=== PATIENT | male | born 1965 | race Caucasian/White ===

== ENCOUNTER 2019-07-08 16:12 | Emergency (ER) | payer OTHER ==
--- NOTE | 2019-07-08 16:27 | PDOC ---
Rapid Medical Evaluation Chief Complaint: Nausea/Vomiting Time Seen by Provider: 07/08/19 16:16 Medical Evaluation: Allergies Allergy/AdvReac Type Severity Reaction Status Date / Time No Known Allergies Allergy Verified 07/12/12 15:40 07/08/19 16:17 I have performed a brief in-person evaluation of this patient. The patient presents with a chief complaint of: vomiting since last PM. No diarhea/ no fevers./ thinks related to Shrimp ate last PM , last emesis ~ 30mins ago. Pertinent physical exam findings: pale / abd soft , no guarding- I have ordered the following:Zofran 4mg ODT The patient will proceed to the ED for further evaluation. Discharge Disposition - Diagnosis Vomiting - Discharge Dispostion Condition at time of disposition: Stable - Referrals - Patient Instructions - Post Discharge Activity
[2019-07-08 16:33] VITALS: TEMP 97.8; BMI 34.3
[2019-07-08] MEDS ORDERED: SODIUM CHLORIDE 1,000 ML IV STA (17:07)
[2019-07-08] MEDS ORDERED: ONDANSETRON 4 MG/2 ML VIAL IVPB ONE (17:07)
--- NOTE | 2019-07-08 17:35 | PDOC ---
History of Present Illness - General Chief Complaint: Nausea/Vomiting Stated Complaint: ALLERGIC REACTION Time Seen by Provider: 07/08/19 16:16 History Source: Patient Exam Limitations: No Limitations - History of Present Illness Travel History: No Initial Comments: 07/08/19 17:31 HISTORY OF PRESENT ILLNESS: 54-year-old male past medical history of hypertension who presents emergency department for evaluation of vomiting since eating shrimp for dinner last night. Patient reports his made him shrimp and he was the only one who had eaten it. He has been vomiting since that time is now reporting an empty stomach and continued retching and has been having some nausea as well. Denies any abdominal pain, constipation, diarrhea, hematuria, dysuria or rectal bleeding. He denies chest pain or shortness of breath. No recent travel or sick contacts. PAST MEDICAL HISTORY: See HPI SURGICAL HISTORY: Denies ALLERGIES: No known drug allergies REVIEW OF SYSTEMS General/Constitutional: Denies fever or chills. Denies weakness, weight change. HEENT: Denies change in vision. Denies ear pain or discharge. Denies sore throat. Cardiovascular: Denies chest pain or shortness of breath. Respiratory: Denies cough, wheezing, or hemoptysis. Gastrointestinal: See HPI Genitourinary: Denies dysuria, frequency, or change in urination. Musculoskeletal: Denies joint or muscle swelling or pain. Denies neck or back pain. Skin and breasts: Denies rash or easy bruising. Neurologic: Denies headache, vertigo, loss of consciousness, or loss of sensation. Psychiatric: Denies depression or anxiety. Endocrine: Denies increased thirst. Denies abnormal weight change. Hematologic/Lymphatic: Denies anemia, easy bleeding, or history of blood clots. Allergic/Immunologic: Denies hives or skin allergy. Denies latex allergy. PHYSICAL EXAM General Appearance: Well-appearing, appropriately dressed. No apparent distress , no intoxication. Respiratory/Chest: Lungs CTAB. No shortness of breath, chest tenderness, respiratory distress, accessory muscle use. No crackles, rales, rhonchi, stridor , wheezing, dullness Cardiovascular: RRR. S1, S2. No JVD, murmur, bradycardia, tachycardia. Gastrointestinal/Abdominal: Normal bowel sounds. Abdomen soft, non-distended. No tenderness or rebound tenderness. No organomegaly, pulsatile mass, guarding, hernia, hepatomegaly, splenomegaly. Past History - Past Medical History Allergies/Adverse Reactions: Allergies Allergy/AdvReac Type Severity Reaction Status Date / Time No Known Allergies Allergy Verified 07/12/12 15:40 Home Medications: Ambulatory Orders Ondansetron [Zofran -] 4 mg PO TID PRN #21 tablet 07/08/19 COPD: No HTN: Yes - Surgical History Gastric Stapling: No - Immunization History Immunization Up to Date: No - Psycho Social/Smoking Cessation Hx Smoking Status: No Smoking History: Never smoked Have you smoked in the past 12 months: No Number of Cigarettes Smoked Daily: 0 Information on smoking cessation initiated: No Hx Alcohol Use: No Drug/Substance Use Hx: No *Physical Exam - Vital Signs Last Vital Signs Temp Pulse Resp BP Pulse Ox 97.8 F 77 16 161/87 100 07/08/19 16:16 07/08/19 16:16 07/08/19 16:16 07/08/19 16:16 07/08/19 16:16 ED Treatment Course - LABORATORY CBC & Chemistry Diagram: 07/08/19 18:40 07/08/19 18:40 Medical Decision Making - Medical Decision Making 07/08/19 17:33 A/P: 54-year-old male with nausea and vomiting for 1 day Abdominal exam is benign Most likely viral gastroenteritis except patient is afebrile. Food poisoning, pancreatitis, cholecystitis, hepatitis, appendicitis are all on the differential but less likely as patient has a benign abdominal exam. Labs including lipase Normal saline 1 L IV bolus 8 mg Zofran IV push Reassess 07/08/19 19:54 Laboratory testing notable for mildly elevated alkaline phosphatase at 125. Patient currently feels better. Given absence of white count and normal laboratory testing will give patient a p.o. trial and reevaluate. 07/08/19 20:04 Patient is able to tolerate p.o.'s without difficulty. Results of been discussed with the patient was in agreement with plan to discharge home to follow-up with his primary doctor as needed. Discharge - Discharge Information Problems reviewed: Yes Clinical Impression/Diagnosis: Vomiting Qualifiers: Vomiting type: unspecified Vomiting Intractability: non-intractable Nausea presence: with nausea Qualified Code(s): R11.2 - Nausea with vomiting, unspecified Condition: Stable Disposition: HOME - Admission No - Additional Discharge Information Prescriptions: Ondansetron [Zofran -] 4 mg PO TID PRN #21 tablet PRN Reason: Nausea And/Or Vomiting - Follow up/Referral Referrals: Loraine Nelson MD [Primary Care Provider] - - Patient Discharge Instructions Additional Instructions: Rest, drink lots of fluids: Teas, water, soups Stefany edwar, carbonated beverages for the bubbles May try peppermint teas Avoid heavy , spicy or fatty foods until symptoms have resolved Avoid contact with others until fevers and symptoms resolved Lots of handwashing and good hygiene Continue [id number] medications for symptomatic relief Tylenol or Motrin for fever and pain May use Zofran-one tablet dissolved on tongue as needed for nausea. May repeat times one every 8 hours Followup with private physician in one to 2 days as needed Return to emergency department for worsened symptoms, fevers, dehydration - Post Discharge Activity
[2019-07-08] MEDS ORDERED: ONDANSETRON 4 MG/2 ML VIAL ONE ×2 (18:20→18:22)
[2019-07-08 19:36] LABS: BASO % 0.2 % (0-2.0); EOS % 0.1 % (0-4.5); HEMATOCRIT 46.4 % (35.4-49); HEMOGLOBIN 16.5 GM/dL (11.7-16.9); LYMPH % 20.3 % (8-40); MCH 29.1 pg (25.7-33.7); MCHC 35.5 g/dl (32.0-35.9); MEAN PLT VOLUME 9.1 fl (7.5-11.1); MONO % 4.6 % (3.8-10.2); NEUT % 74.8 % (42.8-82.8); PLATELET COUNT 207 K/MM3 (134-434); RBC 5.66 M/mm3 (4.00-5.60); RDW 13.6 % (11.9-15.9); WHITE BLOOD COUNT 6.1 K/mm3 (4.0-10.0)
[2019-07-08 19:49] LABS: ALBUMIN 4.3 g/dl (3.4-5.0); BILIRUBIN,TOTAL 0.8 mg/dL (0.2-1); BLOOD UREA NITROGEN 14.9 mg/dL (7-18); CALCIUM 9.7 mg/dL (8.5-10.1); CREATININE 0.8 mg/dL (0.55-1.3); POTASSIUM 4.2 mmol/L (3.5-5.1); TOT PROT 8.5 g/dl (6.4-8.2)
[2019-07-08 20:01] LABS: URINE APPEARANCE CLEAR; URINE BILIRUBIN NEGATIVE (NEGATIVE); URINE COLOR YELLOW; URINE GLUCOSE (UA) NEGATIVE (NEGATIVE); URINE KETONE NEGATIVE (NEGATIVE); URINE LEUK ESTERASE NEGATIVE (NEGATIVE); URINE NITRITE NEGATIVE (NEGATIVE); URINE PROTEIN NEGATIVE (NEGATIVE)
[2019-07-08 21:14] VITALS: BP 152/81; PULSE 75
== END 2019-07-08 20:28 | disposition home or self-care (01) ==
LOC: JER 16:12
PROC: 3E033GC Introduction of Other Therapeutic Substance into Peripheral Vein, Percutaneous Approach (ICD-10-PCS; principal; 2019-07-08)
DX: R11.2 Nausea with vomiting, unspecified (principal)
CPT/HCPCS: 36415; 80053; 81003; 83690; 85025; 99283-25; J7030

== ENCOUNTER 2023-06-07 20:52 | Emergency (ER) | payer OTHER ==
[2023-06-07 21:00] VITALS: RESP 18; BMI 28.3
[2023-06-07] MEDS ORDERED: SODIUM CHLORIDE 0.9% 500 ML INFUS.BAG IV ONE (21:14)
[2023-06-07] MEDS ORDERED: FAMOTIDINE 20 MG/50 ML IVPB 20 MG/50 ML MG IVPB ONE ×2 (21:14→21:43)
[2023-06-07] MEDS ORDERED: ONDANSETRON 4 MG/2 ML VIAL IVPUSH ONE (21:14)
[2023-06-07] MEDS ORDERED: MAG HYDROX/AL HYDROX/SIMETH 30 ML UNIT-DOSE CUP PO ONE (21:14)
[2023-06-07] MEDS ORDERED: MAG HYDROX/AL HYDROX/SIMETH 30 ML UNIT-DOSE CUP ONE (21:43)
[2023-06-07] MEDS ORDERED: ONDANSETRON 4 MG/2 ML VIAL ONE (21:43)
[2023-06-07 21:47] LABS: BASO % 0.5 % (0-2.0); EOS % 0.1 % (0-4.5); HEMATOCRIT 47.8 % (35.4-49); HEMOGLOBIN 16.4 GM/dL (11.7-16.9); LYMPH % 13.5 % (8-40); MCH 27.6 pg (25.7-33.7); MCHC 34.3 g/dl (32.0-35.9); MEAN CELL VOLUME 80.6 fl (80-96); MEAN PLT VOLUME 8.2 fl (7.5-11.1); MONO % 4.9 % (3.8-10.2); PLATELET COUNT 212 10^3/uL (134-434); RBC 5.93 M/mm3 (4.00-5.60); RDW 14.6 % (11.9-15.9); WHITE BLOOD COUNT 8.8 K/mm3 (4.0-10.0)
[2023-06-07 22:04] LABS: POTASSIUM 4.6 mmol/L (3.5-5.1)
[2023-06-07 22:06] LABS: CALCIUM 9.7 mg/dL (8.5-10.1)
[2023-06-07 22:07] LABS: BLOOD UREA NITROGEN 21.4 mg/dL (7-18)
[2023-06-07 22:12] LABS: TOT PROT 8.3 g/dl (6.4-8.2)
[2023-06-07 22:52] VITALS: BP 141/77; PULSE 68; TEMP 98.8
== END 2023-06-07 22:52 | disposition home or self-care (01) ==
LOC: JER 20:52
PROC: 3E033GC Introduction of Other Therapeutic Substance into Peripheral Vein, Percutaneous Approach (ICD-10-PCS; principal; 2023-06-07)
PROC: 3E033GC Introduction of Other Therapeutic Substance into Peripheral Vein, Percutaneous Approach (ICD-10-PCS; 2023-06-07)
DX: R11.2 Nausea with vomiting, unspecified (principal); R10.9 Unspecified abdominal pain; Z20.822 Contact with and (suspected) exposure to COVID-19
CPT/HCPCS: 0241U-QW; 36415; 80053; 83690; 83735; 84484; 85025; 93005; 93010; 99284-25

== ENCOUNTER 2024-11-03 06:19 | Day surgery (SDC) | payer OTHER ==
[2024-11-01 11:52] VITALS: BMI 26.4
[2024-11-03] MEDS ORDERED: PROPOFOL 20 ML ONE (07:16)
[2024-11-03] MEDS ORDERED: LIDOCAINE HCL/PF 2% SDV 5ML VIAL ONE (07:16)
[2024-11-03] MEDS ORDERED: MIDAZOLAM HCL 2 MG/2 ML SINGLE DOSE VIAL ONE (07:16)
[2024-11-03] MEDS: ceFAZolin SODIUM 1 GM VIAL IVPB ONE (08:20)
[2024-11-03] MEDS: BUPIVACAINE HCL/PF 0.25% (2.5MG/ML) 10 ML VIAL IJ ONE (08:30)
[2024-11-03] MEDS ORDERED: ONDANSETRON 4 MG/2 ML VIAL IVPUSH PRN (09:06)
[2024-11-03] MEDS ORDERED: PROMETHAZINE HCL 25 MG/1 ML VIAL IVPB PRN (09:06)
[2024-11-03] MEDS ORDERED: oxyCODONE HCL 5 MG TABLET PO PRN ×2 (09:06)
[2024-11-03] MEDS ORDERED: LACTATED RINGERS SOLUTION 1,000 ML IV SCH (09:15)
[2024-11-03] MEDS: ACETAMINOPHEN 1000 MG/100 ML BAG IVPB ONE (09:20)
[2024-11-03 11:20] VITALS: RESP 18; TEMP 98.2
[2024-11-03 12:13] VITALS: BP 150/74; PULSE 65
== END 2024-11-03 12:15 | disposition home or self-care (01) ==
LOC: JASU-SURG 06:19
PROVIDERS: ATTEND Surgery
PROC: 06BY0ZC Excision of Hemorrhoidal Plexus, Open Approach (ICD-10-PCS; principal; 2024-11-03 08:00)
DX: K64.8 Other hemorrhoids (principal)
CPT/HCPCS: 88304-TC; 94760